=== PATIENT | female | born 1950 | race Two or more races ===

== ENCOUNTER 2023-07-11 13:01 | Inpatient (IN) | payer MEDICAID, OTHER ==
[~2023-07-11] VITALS: Ht 144.8 cm; Wt 59.3 kg
[2023-07-11] VITALS (8 sets, daily range): BP systolic 118–151; BP diastolic 39–60; PULSE 76–94; RESP 14–25; TEMP 98.6–99.4; O2SAT 98
[2023-07-11] MEDS ORDERED: FUROSEMIDE 40 MG/4 ML VIAL IV ONE (14:15)
[2023-07-11 14:19] LABS: INR 0.99 (0.9-1.15); Partial Thromboplastin Time 29.1 SEC (24.5-34.5); Prothrombin Time 10.4 sec (9.3-11.8)
[2023-07-11 14:20] LABS: Mean Corpuscular Hemoglobin 33.7 pg (28.0-32.0); Mean Corpuscular Hgb Conc. 34.9 g/dL (32.0-36.0); Mean Corpuscular Volume 96.6 fL (80.0-100.0); Red Blood Cells 1.43 10^6/uL (4.0-5.20); Red Cell Distribution Width 18.1 % (11.8-14.3)
[2023-07-11 14:24] LABS: Hematocrit 13.8 % (36.0-46.0); Hemoglobin 4.8 g/dL (12.2-16.2)
[2023-07-11 14:26] LABS: Band Neutrophils % (manual) 0; Basophils % (manual) 0 (0.0-2.0); Blast Cells 0; Eosinophils % (manual) 0 (0-7); Metamyelocytes % 0; Myelocytes % 0; Promyelocytes % 0
[2023-07-11 14:28] LABS: Alkaline Phosphatase 67 U/L (46-116); Anion Gap 7 (5-15); Aspartate Aminotransferase < 8 U/L (13-40); BUN/Creatinine Ratio 25.3 (10.0-20.0); Bilirubin, Total 0.4 mg/dL (0.2-1.0); Blood Urea Nitrogen 19 mg/dL (9-23); Calcium 9.6 mg/dL (8.7-10.4); Carbon Dioxide 24 mmol/L (20-30); Chloride 105 mmol/L (98-107); Glucose 164 mg/dL (74-106); Magnesium 1.5 mg/dL (1.6-2.6); Potassium 4.1 mmol/L (3.5-5.1); Sodium 136 mmol/L (136-145); Total Protein 8.2 g/dL (5.7-8.2)
[2023-07-11 14:45] LABS: Lymphocytes % (manual) 56 (10.0-50.0); Monocytes % (manual) 9 (0-12); Platelet Estimate Decreased; Reactive Lymphocytes 4
[2023-07-11 14:55] LABS: Alanine Aminotransferase < 9 U/L (7-40)
[2023-07-11] MEDS ORDERED: DEXTROSE (50%) 50ML SYRG IV PRN (16:00)
[2023-07-11] MEDS ORDERED: FUROSEMIDE 20 MG/2 ML VIAL IV ONE (16:15)
[2023-07-11] MEDS ORDERED: MORPHINE SULFATE INJ 2 MG/ml SYRG IV PRN (16:15)
[2023-07-11] MEDS ORDERED: NITROGLYCERIN 0.4 MG SL TAB SL PRN (16:15)
[2023-07-11 16:16] LABS: Urine Bacteria NONE SEEN /hpf (None Seen); Urine Blood Negative /uL (Negative); Urine Clarity Clear (Clear); Urine Color Colorless (Yellow); Urine Protein, UAD TRACE (Negative); Urine Specific Gravity 1.007 (1.001-1.035); Urine Urobilinogen Normal (Negative); Urine WBC 1 /hpf (0 - 5); Urine pH 7.5 (5.0-8.0)
[2023-07-11 16:33] LABS: Triglycerides 90 mg/dL (< 150)
[2023-07-11 16:34] LABS: LDL Cholesterol 36 mg/dL (< 100)
[2023-07-11 16:35] LABS: Cholesterol 86 mg/dL (< 200); HDL Cholesterol 36 mg/dL (40-59)
[2023-07-11] MEDS: InsuLIN REG 1unit/0.01ml Soln (100units/ml) SC SCH ×2 (17:00→22:29)
[2023-07-11] MEDS: ACCU-CHEK COMFORT CURVE STRIP VI SCH ×2 (17:16→22:25)
[2023-07-11] MEDS: MAGNESIUM SULFATE 1GM/100ML 100 ML IV SCH ×3 (17:26→21:16)
[2023-07-11] MEDS: ACETAMINOPHEN 325 MG TAB PO PRN (17:26)
[2023-07-11] MEDS ORDERED: MAGNESIUM SULFATE 1GM/100ML 100 ML IV SCH (21:15)
[2023-07-12] VITALS (13 sets, daily range): BP systolic 122–163; BP diastolic 46–76; PULSE 61–102; RESP 13–20; TEMP 87.8–98.7; O2SAT 93–100
[2023-07-12] MEDS: ACETAMINOPHEN 325 MG TAB PO PRN (03:27)
[2023-07-12 05:57] LABS: Alanine Aminotransferase 11 U/L (7-40); Alkaline Phosphatase 62 U/L (46-116)
[2023-07-12 05:58] LABS: Albumin 3.8 g/dL (3.2-4.8); Anion Gap 8 (5-15); Aspartate Aminotransferase 9 U/L (13-40); BUN/Creatinine Ratio 22.3 (10.0-20.0); Bilirubin, Total 1.3 mg/dL (0.2-1.0); Blood Urea Nitrogen 21 mg/dL (9-23); Calcium 9.5 mg/dL (8.5-10.1); Carbon Dioxide 24 mmol/L (20-30); Chloride 103 mmol/L (98-107); Glucose 164 mg/dL (74-106); Potassium 3.8 mmol/L (3.5-5.1); Sodium 135 mmol/L (136-145); Total Protein 7.7 g/dL (5.7-8.2)
[2023-07-12 06:00] LABS: Hematocrit 26.5 % (36.0-46.0); Hemoglobin 9.3 g/dL (12.2-16.2); Mean Corpuscular Hemoglobin 32.2 pg (28.0-32.0); Mean Corpuscular Hgb Conc. 35.1 g/dL (32.0-36.0); Mean Corpuscular Volume 91.9 fL (80.0-100.0); Red Blood Cells 2.88 10^6/uL (4.0-5.20); Red Cell Distribution Width 14.9 % (11.8-14.3); White Blood Cell 2.4 10^3/uL (4.4-10.8)
[2023-07-12 06:21] LABS: Basophils % (manual) 0 (0.0-2.0); Blast Cells 0; Metamyelocytes % 0; Myelocytes % 0; Promyelocytes % 0
[2023-07-12] MEDS: InsuLIN REG 1unit/0.01ml Soln (100units/ml) SC SCH ×4 (06:21→21:59)
[2023-07-12] MEDS: ACCU-CHEK COMFORT CURVE STRIP VI SCH ×4 (06:24→21:59)
[2023-07-12 08:10] LABS: Band Neutrophils % (manual) 4; Eosinophils % (manual) 1 (0-7); Lymphocytes % (manual) 59 (10.0-50.0); Monocytes % (manual) 18 (0-12); Reactive Lymphocytes 2
[2023-07-12 08:11] LABS: Anisocytosis Slight; Platelet Estimate Decreased
[2023-07-12 12:27] LABS: Hematocrit 27.6 % (36.0-46.0); Hemoglobin 9.6 g/dL (12.2-16.2); Mean Corpuscular Hemoglobin 31.8 pg (28.0-32.0); Mean Corpuscular Hgb Conc. 34.8 g/dL (32.0-36.0); Mean Corpuscular Volume 91.6 fL (80.0-100.0); Red Blood Cells 3.01 10^6/uL (4.0-5.20); Red Cell Distribution Width 15.2 % (11.8-14.3); White Blood Cell 2.9 10^3/uL (4.4-10.8)
[2023-07-12 12:33] LABS: Basophils % (manual) 0 (0.0-2.0); Blast Cells 0; Eosinophils % (manual) 0 (0-7); Metamyelocytes % 0; Myelocytes % 0; Promyelocytes % 0
[2023-07-12 12:48] LABS: Band Neutrophils % (manual) 2; Lymphocytes % (manual) 53 (10.0-50.0); Monocytes % (manual) 23 (0-12); Reactive Lymphocytes 2
[2023-07-12 12:49] LABS: Anisocytosis Slight; Platelet Estimate Decreased
[2023-07-12 18:42] LABS: Hematocrit 30.4 % (36.0-46.0); Hemoglobin 10.6 g/dL (12.2-16.2); Mean Corpuscular Hemoglobin 31.9 pg (28.0-32.0); Mean Corpuscular Hgb Conc. 34.9 g/dL (32.0-36.0); Mean Corpuscular Volume 91.3 fL (80.0-100.0); Red Blood Cells 3.33 10^6/uL (4.0-5.20); Red Cell Distribution Width 14.9 % (11.8-14.3); White Blood Cell 3.1 10^3/uL (4.4-10.8)
[2023-07-12 18:49] LABS: Basophils % (manual) 0 (0.0-2.0); Eosinophils % (manual) 0 (0-7); Metamyelocytes % 0; Myelocytes % 0; Promyelocytes % 0
[2023-07-12 19:17] LABS: Band Neutrophils % (manual) 2; Blast Cells 9; Lymphocytes % (manual) 56 (10.0-50.0); Monocytes % (manual) 5 (0-12); Platelet Estimate Decreased; Reactive Lymphocytes 3
[2023-07-13 00:28] LABS: Hematocrit 28.7 % (36.0-46.0); Hemoglobin 10.1 g/dL (12.2-16.2); Mean Corpuscular Hemoglobin 31.8 pg (28.0-32.0); Mean Corpuscular Hgb Conc. 35.1 g/dL (32.0-36.0); Mean Corpuscular Volume 90.7 fL (80.0-100.0); Red Blood Cells 3.17 10^6/uL (4.0-5.20); White Blood Cell 3.7 10^3/uL (4.4-10.8)
[2023-07-13 00:31] LABS: Band Neutrophils % (manual) 0; Basophils % (manual) 0 (0.0-2.0); Blast Cells 0; Eosinophils % (manual) 0 (0-7); Metamyelocytes % 0; Myelocytes % 0; Promyelocytes % 0; Reactive Lymphocytes 0
[2023-07-13 00:52] LABS: Lymphocytes % (manual) 48 (10.0-50.0); Monocytes % (manual) 19 (0-12); Platelet Estimate Decreased
[2023-07-13] MEDS: ACETAMINOPHEN 325 MG TAB PO PRN (04:10)
[2023-07-13 05:00] VITALS: BP 152/52; PULSE 81; RESP 18; TEMP 98; O2SAT 95
[2023-07-13] MEDS: ACCU-CHEK COMFORT CURVE STRIP VI SCH ×3 (06:00→17:19)
[2023-07-13] MEDS: InsuLIN REG 1unit/0.01ml Soln (100units/ml) SC SCH ×3 (06:02→17:00)
[2023-07-13 06:27] LABS: Hematocrit 27.9 % (36.0-46.0); Hemoglobin 9.7 g/dL (12.2-16.2); Mean Corpuscular Hemoglobin 31.8 pg (28.0-32.0); Mean Corpuscular Hgb Conc. 34.9 g/dL (32.0-36.0); Red Blood Cells 3.06 10^6/uL (4.0-5.20); White Blood Cell 3.4 10^3/uL (4.4-10.8)
[2023-07-13 06:41] LABS: Basophils % (manual) 0 (0.0-2.0); Blast Cells 0; Eosinophils % (manual) 0 (0-7); Metamyelocytes % 0; Myelocytes % 0; Promyelocytes % 0
[2023-07-13 08:00] VITALS: BP_SYST 138; BP_DIAS 60; BP_DIAS 64; PULSE 78; PULSE 85; PULSE 87; RESP 20; TEMP 98.3; TEMP 98.6; O2SAT 94; O2SAT 99
[2023-07-13 08:14] LABS: Band Neutrophils % (manual) 1; Lymphocytes % (manual) 51 (10.0-50.0); Monocytes % (manual) 25 (0-12); Reactive Lymphocytes 3
[2023-07-13 08:15] LABS: Anisocytosis Slight; Platelet Estimate Decreased
[2023-07-13 11:52] LABS: Basophils # (auto) 0 10 ^3/uL (0-0.2); Basophils % (auto) 0.7 % (0.0-2.0); Eosinophils # (auto) 0 10 ^3/uL (0-0.8); Eosinophils % (auto) 0.2 % (0.0-7.0); Hematocrit 30.5 % (36.0-46.0); Hemoglobin 10.4 g/dL (12.2-16.2); Lymphocytes # (auto) 1.5 10 ^3/uL (0.4-5.4); Lymphocytes % (auto) 50.9 % (10.0-50.0); Mean Corpuscular Hemoglobin 31.2 pg (28.0-32.0); Mean Corpuscular Hgb Conc. 34.2 g/dL (32.0-36.0); Mean Corpuscular Volume 91.3 fL (80.0-100.0); Monocytes # (auto) 0.6 10 ^3/uL (0-1.3); Monocytes % (auto) 21.9 % (0.0-12.0); Neutrophils # (auto) 0.8 10 ^3/uL (1.6-8.6); Neutrophils % (auto) 26.3 % (37.0-80.0); Nucleated Red Blood Cells % 0.2 %; Red Blood Cells 3.35 10^6/uL (4.0-5.20); Red Cell Distribution Width 15.2 % (11.8-14.3); White Blood Cell 2.9 10^3/uL (4.4-10.8)
[2023-07-13 13:00] VITALS: BP 149/73; PULSE 89; RESP 18; TEMP 98.4; O2SAT 96
[2023-07-13 17:00] VITALS: BP 153/61; PULSE 84; RESP 20; TEMP 98.3; O2SAT 97
[2023-07-13 17:32] VITALS: BP 145/63; PULSE 76; RESP 20; TEMP 36.8
== END 2023-07-13 18:19 | disposition home or self-care (01) | DRG 694 ==
LOC: ER 13:01 → TELE-EAST 16:12 → TELE 16:12 → TELE-EAST 22:43
PROVIDERS: ADMIT Nurse Practitioner Family; ATTEND Nurse Practitioner Family
PROC: 30233N1 Transfusion of Nonautologous Red Blood Cells into Peripheral Vein, Percutaneous Approach (ICD-10-PCS; principal; 2023-07-11)
DX: D46.9 Myelodysplastic syndrome, unspecified (principal); D61.818 Other pancytopenia; E83.42 Hypomagnesemia; E11.9 Type 2 diabetes mellitus without complications; E66.01 Morbid (severe) obesity due to excess calories; Z68.28 Body mass index [BMI] 28.0-28.9, adult; I10 Essential (primary) hypertension
CPT/HCPCS: 36415; 71045; 80053; 80061; 81001; 82962; 83036; 83735; 83880; 84443; 84484; 85007; 85025; 85027; 85610; 85730; 86850; 86900; 86901; 86920; 93306; G0378; J1815